=== PATIENT | female | born 1935 | race Caucasian/White ===

== ENCOUNTER 2019-08-24 09:55 | Emergency (ER) | payer MEDICARE, OTHER ==
--- NOTE | 2019-08-24 11:08 | CR ---
[id number] RAD/RAD Ankle Left 3V Min EXAM: RAD Ankle Left 3V Min CLINICAL DATA: PAIN COMPARISON: NO PREVIOUS SIMILAR EXAM IS AVAILABLE. FINDINGS: No fracture or dislocation is seen. There is no radiopaque foreign body in the soft tissues. There is no air in the soft tissues. There is no cortical thickening or periosteal reaction either. IMPRESSION: NEGATIVE PLAIN FILM EXAM. Chet Cruz MD 08/24/19 0423 Thank you for allowing us to participate in the care of your patient.
--- NOTE | 2019-08-24 11:24 | EDM.PDOC ---
ED HPI GENERAL MEDICAL PROBLEM - General Chief Complaint: Lower Extremity Injury/Pain Stated Complaint: S/P FALL, LEFT ANKLE PAIN Time Seen by Provider: 08/24/19 11:04 Source of Information: Reports: Patient, Family (daughter) History Limitations: Reports: No Limitations - History of Present Illness INITIAL COMMENTS - FREE TEXT/NARRATIVE: Patient presents with pain in left anterior foot after falling on the ice 3 days ago. She was out getting her mail and slipped on the icy ruts. She denies any pain in wrists or other extremities except some intermittent pain in right greater trochanter region that comes and goes. The pain is primarily with ankle dorsiflexion and plantar flexion and less with weight bearing. Left Ankle Pain Score (Numeric/FACES): 8 - Related Data Allergies Allergy/AdvReac Type Severity Reaction Status Date / Time morphine Allergy Hallucinati Verified 08/24/19 10:23 ons Home Meds: Home Meds DULoxetine [Cymbalta] 25 mg PO DAILY 08/24/19 [History] Omeprazole PO DAILY 08/24/19 [History] Past Medical History HEENT History: Reports: Impaired Vision - Past Surgical History GI Surgical History: Reports: Cholecystectomy, Other (See Below) Other GI Surgeries/Procedures: abdominal mesh Female Surgical History: Reports: Hysterectomy Musculoskeletal Surgical History: Reports: Other (See Below) Other Musculoskeletal Surgeries/Procedures:: back and hip surgery Social & Family History - Recreational Drug Use Recreational Drug Use: No Review of Systems - Review of Systems Review Of Systems: See Below Constitutional: Denies: Chills, Fever, Weakness Eyes: Denies: Vision Change Ears: Denies: Dizziness Nose: Reports: No Symptoms Mouth/Throat: Reports: No Symptoms Respiratory: Denies: Shortness of Breath, Cough Cardiovascular: Denies: Chest Pain, Lightheadedness, Syncope GI/Abdominal: Denies: Abdominal Pain, Vomiting Genitourinary: Reports: Incontinence (chronic). Denies: Dysuria, Hematuria Musculoskeletal: Reports: Shoulder Pain (chronic), Foot Pain (see CC). Denies: Neck Pain, Arm Pain, Leg Pain Skin: Denies: Cyanosis, Jaundice, Mottled, Pallor, Diaphoresis Neurological: Denies: Confusion, Dizziness, Headache, Seizure, Syncope, Trouble Speaking, Difficulty Walking Psychiatric: Denies: Confusion, Anxiety, Agitation ED EXAM, GENERAL - Physical Exam Exam: See Below Exam Limited By: No Limitations General Appearance: Alert, WD/WN, No Apparent Distress Eye Exam: Bilateral Eye: EOMI, Normal Inspection, PERRL Ears: Normal External Exam, Hearing Grossly Normal Nose: Normal Inspection, No Blood Throat/Mouth: Normal Inspection, Normal Lips, Normal Voice, No Airway Compromise Head: Atraumatic, Normocephalic Neck: Normal Inspection, Full Range of Motion Respiratory/Chest: No Respiratory Distress, Lungs Clear, Normal Breath Sounds, No Accessory Muscle Use Cardiovascular: Regular Rate, Rhythm, No Murmur GI/Abdominal: Soft, Non-Tender, No Organomegaly, No Distention Extremities: Normal Range of Motion, Other (There is mild swelling over that proximal anterior foot and tender to palpation. No evidence of crepitus, dislocation or bony pathology. Malleoli not tender. Distal CMS intact. Other extremities normal.) Neurological: Alert, Oriented, Normal Cognition, No Motor/Sensory Deficits Psychiatric: Normal Affect, Normal Mood Skin Exam: Warm, Dry, Intact, Normal Color, No Rash Course - Vital Signs Last Recorded V/S: Last Vital Signs Temp 97.4 F 08/24/19 10:28 Pulse 84 08/24/19 10:28 Resp 16 08/24/19 10:28 BP 132/61 08/24/19 10:28 Pulse Ox 93 L 08/24/19 10:28 - Re-Assessments/Exams Free Text/Narrative Re-Assessment/Exam: 08/24/19 11:21 Xrays show no fracture or acute pathology. Discussed findings and recommendations with patient and her daughter. Offered a CAM boot and discussed the pros and cons for it. She decided to just use an EVANGELINA as she thinks it will be adequate since nothing is broken. An EVANGELINA is placed and patient is discharged to home in stable condition. Departure - Departure Time of Disposition: 11:19 Disposition: Home, Self-Care 01 Condition: Good Clinical Impression: Left ankle strain Qualifiers: Encounter type: initial encounter Qualified Code(s): S96.912A - Strain of unspecified muscle and tendon at ankle and foot level, left foot, initial encounter - Discharge Information Instructions: Ankle Sprain, [id number] Referrals: Benita Katz MD [Primary Care Provider] - Additional Instructions: 1. Try to avoid activities that cause pain in the ankle and foot. 2. Wrap with EVANGELINA wrap for support and comfort. 3. If you find your ankle is still hurting you can see your PCP for an ankle boot like we discussed. 4. Follow up with your PCP if this isn't improving in a week. Sepsis Event Note - Evaluation Sepsis Screening Result: No Definite Risk - Focused Exam Vital Signs: Vital Signs Temp Pulse Resp BP Pulse Ox 08/24/19 10:28 97.4 F 84 16 132/61 93 L Date Exam was Performed: 08/24/19 Time Exam was Performed: 11:18
== END 2019-08-24 11:30 | disposition home or self-care (01) ==
LOC: KA.ED 09:55
DX: S96.912A Strain of unspecified muscle and tendon at ankle and foot level, left foot, initial encounter (principal); Z88.5 Allergy status to narcotic agent; Z79.899 Other long term (current) drug therapy; W00.0XXA Fall on same level due to ice and snow, initial encounter
CPT/HCPCS: 73610-LT; 99283; 99283-25

== ENCOUNTER 2021-06-07 15:51 | Emergency (ER) | payer MEDICARE, OTHER ==
--- NOTE | 2021-06-07 16:29 | EDM.PDOC ---
ED HPI GENERAL MEDICAL PROBLEM - General Chief Complaint: General Stated Complaint: RIB PAIN Time Seen by Provider: 06/07/21 16:17 Source of Information: Reports: Patient History Limitations: Reports: No Limitations - History of Present Illness INITIAL COMMENTS - FREE TEXT/NARRATIVE: Patient presents with pain in ribs under right breast. At rest there is no pain but quite painful every time she takes a deep breath. It started after a fall 4 weeks ago but hurts today worse than before. No shortness of breath and she is not just taking shallow breaths she says. It hurts some with certain arm and/or torso movements. No exertional pain, tightness, or heaviness. right ribs Pain Score (Numeric/FACES): 8 - Related Data Allergies Allergy/AdvReac Type Severity Reaction Status Date / Time codeine Allergy Other Verified 06/07/21 16:09 morphine Allergy Hallucinati Verified 06/07/21 16:09 ons oxycodone Allergy Hallucinati Verified 06/07/21 16:09 ons Home Meds: Home Meds DULoxetine [Cymbalta] 25 mg PO DAILY 08/24/19 [History] Omeprazole 20 mg PO Q48H 08/24/19 [History] Calcium Carb/Magnesium Ox,Carb [Hay-Mag] 1 each PO DAILY 12/08/20 [History] Cholecalciferol (Vitamin D3) [Vitamin D3] 5,000 unit PO DAILY 12/08/20 [History] Empagliflozin [Jardiance] 25 mg PO DAILY 12/08/20 [History] Krill/Om-3/DHA/EPA/Phospho/Ast [[place]-3 Krill Oil 1,000 mg] 1 each PO DAILY 12/08/20 [History] Mirabegron [Myrbetriq] 25 mg PO DAILY 12/08/20 [History] Multivitamin [Multi-Vitamin Daily] 1 each PO DAILY 12/08/20 [History] Rosuvastatin [Crestor] 10 mg PO DAILY 12/08/20 [History] lisinopriL [Lisinopril] 5 mg PO DAILY 12/08/20 [History] metFORMIN [Glucophage XR] 500 mg PO DAILY 12/08/20 [History] Past Medical History HEENT History: Reports: Impaired Vision - Past Surgical History GI Surgical History: Reports: Cholecystectomy, Other (See Below) Other GI Surgeries/Procedures: abdominal mesh Female Surgical History: Reports: Hysterectomy Musculoskeletal Surgical History: Reports: Other (See Below) Other Musculoskeletal Surgeries/Procedures:: back and hip surgery Social & Family History - Tobacco Use Tobacco Use Status *Q: Never Tobacco User Second Hand Smoke Exposure: No - Caffeine Use Caffeine Use: Reports: Coffee - Recreational Drug Use Recreational Drug Use: No ED ROS GENERAL - Review of Systems Review Of Systems: Comprehensive ROS is negative, except as noted in HPI. ED EXAM, GENERAL - Physical Exam Exam: See Below Exam Limited By: No Limitations General Appearance: Alert, WD/WN, No Apparent Distress Eye Exam: Bilateral Eye: EOMI, Normal Inspection, PERRL Ears: Normal External Exam, Hearing Grossly Normal Nose: Normal Inspection, No Blood Throat/Mouth: Normal Inspection, Normal Lips, Normal Voice, No Airway Compromise Head: Atraumatic, Normocephalic Neck: Normal Inspection, Full Range of Motion Respiratory/Chest: No Respiratory Distress, Lungs Clear, Normal Breath Sounds, No Accessory Muscle Use, Other (Very tender to palpation of anterior/inferior rib just beneath right breast. Also some tenderness to palpation of sternum (likely due to fibromyalgia she says).). No: Crackles, Rales, Rhonchi, Wheezing, Stridor Cardiovascular: Regular Rate, Rhythm, No Murmur GI/Abdominal: Normal Bowel Sounds, Soft, Non-Tender, No Organomegaly, No Distention Back Exam: Normal Inspection, Full Range of Motion. No: CVA Tenderness (L), CVA Tenderness (R) Extremities: Normal Inspection, Normal Range of Motion, Non-Tender Neurological: Alert, Oriented, Normal Cognition, No Motor/Sensory Deficits Psychiatric: Normal Affect, Normal Mood Skin Exam: Warm, Dry, Intact, Normal Color, No Rash Course - Vital Signs Last Recorded V/S: Last Vital Signs Temp 97.8 F 06/07/21 16:00 Pulse 77 06/07/21 17:05 Resp 16 06/07/21 17:05 BP 145/77 H 06/07/21 17:05 Pulse Ox 93 L 06/07/21 17:05 - Re-Assessments/Exams Free Text/Narrative Re-Assessment/Exam: 06/07/21 17:44 CXR shows age indeterminate fractures of right anterior 5th-8th ribs. Small right pleural effusion. Discussed findings and treatment recommendations with patient. She is likely having pleuritic pain now along with the rib pain. She can take NSAIDS she says. Will treat with moderate doses of Ibuprofen and follow up with PCP in one week. Discharged to home in stable condition. Departure - Departure Time of Disposition: 17:40 Disposition: Home, Self-Care 01 Condition: Good Clinical Impression: Pleuritic pain, Small pleural effusion Fracture of three ribs of right side Qualifiers: Encounter type: initial encounter Fracture type: closed Qualified Code(s): S22.41XA - Multiple fractures of ribs, right side, initial encounter for closed fracture - Discharge Information Referrals: Benita Katz MD [Primary Care Provider] - Forms: ED Department Discharge Additional Instructions: Drink 8 cups of water daily. Take Ibuprofen 200-400 mg two or three times a day for inflammation. Follow up with your PCP in one week. If worsening recheck sooner in clinic or ER as needed. Sepsis Event Note (ED) - Evaluation Sepsis Screening Result: No Definite Risk - Focused Exam Vital Signs: Vital Signs Temp Pulse Resp BP Pulse Ox 06/07/21 17:05 77 16 145/77 H 93 L 06/07/21 16:22 81 16 135/70 95 06/07/21 16:00 97.8 F 77 16 150/94 H 96
--- NOTE | 2021-06-07 16:48 | CR ---
[id number] RAD/RAD Chest PA And Lateral EXAM: RAD Chest PA And Lateral INDICATION: RIGHT RIB PAIN, SHORTNESS OF BREATH. COMPARISON: None. DISCUSSION: Multiple lower anterior right rib fractures are age-indeterminate and involve at least the fifth-eighth ribs. Minimal right effusion. No radiographically evident pneumothorax. Hyperinflation suggests underlying chronic obstructive pulmonary disease. Borderline heart size without evidence of edema. Mild bibasilar subsegmental atelectasis. Partially imaged posterior fusion hardware within the lumbar spine. IMPRESSION: 1. Multiple age-indeterminate lower right rib fractures. 2. Minimal right pleural effusion. Jaiden Beth MD 06/07/21 [id number] Thank you for allowing us to participate in the care of your patient.
== END 2021-06-07 16:55 | disposition home or self-care (01) ==
LOC: KA.ED 15:51
DX: S22.41XA Multiple fractures of ribs, right side, initial encounter for closed fracture (principal); J90 Pleural effusion, not elsewhere classified; Z88.5 Allergy status to narcotic agent; W19.XXXA Unspecified fall, initial encounter
CPT/HCPCS: 71046; 99283-25; 99284

== ENCOUNTER 2021-08-01 08:58 | Emergency (ER) | payer MEDICARE, OTHER ==
--- NOTE | 2021-08-01 10:03 | EDM.PDOC ---
ED HPI GENERAL MEDICAL PROBLEM - General Chief Complaint: General Stated Complaint: HIGH BLOOD PRESSURE Time Seen by Provider: 08/01/21 09:43 Source of Information: Reports: Patient History Limitations: Reports: No Limitations - History of Present Illness INITIAL COMMENTS - FREE TEXT/NARRATIVE: 85 YO WF PRESENTS TO ER WITH CONCERNS OF HIGH BLOOD PRESSURE FEEL ANXIOUS TODAY WITH MILD SORE THROAT. PT REPORTS SHE WAS HAVING TROUBLE SLEEPING LAST NIGHT DUE TO A PHONE CONVERSATION WITH HER NIECE THAT WAS UPSETTING. PT WOKE THIS AM AND TOOK HER BLOOD PRESSURE WHICH SHE FELT WAS ELEVATED PROMPTING ER EVALUATION. BP- 130'S/80'S IN ER CURRENTLY. PT DENIES CHEST PAIN, SHORTNESS OF BREATH, DIAPHORESIS, OR N/V. PT DENIES FEVER/CHILLS, OR COUGH BUT STATES SHE HAS HAD MILD SORE THROAT AND SOME NASAL CONGESTION. PT REPORTS SHE IS FEELING BETTER NOW. Onset: Today Location: Reports: Generalized Severity: Mild Improves with: Reports: None Worsens with: Reports: None Associated Symptoms: Reports: No Other Symptoms, Malaise. Denies: Confusion, Chest Pain, Cough, Diaphoresis, Fever/Chills, Headaches, Loss of Appetite, Nausea/Vomiting, Shortness of Breath, Syncope, Weakness - Related Data Allergies Allergy/AdvReac Type Severity Reaction Status Date / Time codeine Allergy Other Verified 08/01/21 09:23 morphine Allergy Hallucinati Verified 08/01/21 09:23 ons oxycodone Allergy Hallucinati Verified 08/01/21 09:23 ons Home Meds: Home Meds DULoxetine [Cymbalta] 25 mg PO DAILY 08/24/19 [History] Omeprazole 20 mg PO Q48H 08/24/19 [History] Calcium Carb/Magnesium Ox,Carb [Hay-Mag] 1 each PO DAILY 12/08/20 [History] Cholecalciferol (Vitamin D3) [Vitamin D3] 5,000 unit PO DAILY 12/08/20 [History] Empagliflozin [Jardiance] 25 mg PO DAILY 12/08/20 [History] Krill/Om-3/DHA/EPA/Phospho/Ast [[place]-3 Krill Oil 1,000 mg] 1 each PO DAILY 12/08/20 [History] Mirabegron [Myrbetriq] 25 mg PO DAILY 12/08/20 [History] Multivitamin [Multi-Vitamin Daily] 1 each PO DAILY 12/08/20 [History] Rosuvastatin [Crestor] 10 mg PO DAILY 12/08/20 [History] lisinopriL [Lisinopril] 5 mg PO DAILY 12/08/20 [History] metFORMIN [Glucophage XR] 500 mg PO BID 12/08/20 [History] Past Medical History HEENT History: Reports: Impaired Vision Cardiovascular History: Reports: High Cholesterol, Hypertension Respiratory History: Reports: SOB Gastrointestinal History: Reports: G[employer] MA[employer]GER History: Reports: Musculoskeletal History: Reports: Osteoarthritis Psychiatric History: Reports: Anxiety, Depression Endocrine/Metabolic History: Reports: Obesity/BMI 30+, Osteoporosis - Past Surgical History GI Surgical History: Reports: Cholecystectomy, Other (See Below) Other GI Surgeries/Procedures: abdominal mesh Female Surgical History: Reports: Hysterectomy Musculoskeletal Surgical History: Reports: Other (See Below) Other Musculoskeletal Surgeries/Procedures:: back and hip surgery Social & Family History - Family History Family Medical History: No Pertinent Family History - Tobacco Use Tobacco Use Status *Q: Never Tobacco User - Caffeine Use Caffeine Use: Reports: Coffee, Soda, Tea - Recreational Drug Use Recreational Drug Use: No ED ROS GENERAL - Review of Systems Review Of Systems: See Below Constitutional: Reports: No Symptoms HEENT: Reports: Rhinitis Respiratory: Reports: No Symptoms Cardiovascular: Reports: No Symptoms Endocrine: Reports: No Symptoms GI/Abdominal: Reports: No Symptoms : Reports: No Symptoms Musculoskeletal: Reports: No Symptoms Skin: Reports: No Symptoms Neurological: Reports: No Symptoms Psychiatric: Reports: Anxiety Hematologic/Lymphatic: Reports: No Symptoms Immunologic: Reports: No Symptoms ED EXAM, GENERAL - Physical Exam Exam: See Below Exam Limited By: No Limitations General Appearance: Alert, WD/WN, No Apparent Distress, Anxious Throat/Mouth: Normal Inspection, Normal Lips, Normal Teeth, Normal Gums, Normal Oropharynx, Normal Voice, No Airway Compromise Head: Atraumatic, Normocephalic Neck: Normal Inspection, Supple, Non-Tender, Full Range of Motion Respiratory/Chest: No Respiratory Distress, Lungs Clear, Normal Breath Sounds, No Accessory Muscle Use, Chest Non-Tender Cardiovascular: Normal Peripheral Pulses, Regular Rate, Rhythm, No Edema, No Gallop, No JVD, No Murmur, No Rub GI/Abdominal: Normal Bowel Sounds, Soft, Non-Tender, No Organomegaly, No Distention, No Abnormal Bruit, No Mass Back Exam: Normal Inspection, Full Range of Motion, NT Extremities: Normal Inspection, Normal Range of Motion, Non-Tender, Normal Capillary Refill, No Pedal Edema Neurological: Alert, Oriented, CN II-XII Intact, Normal Cognition, Normal Gait, No Motor/Sensory Deficits Psychiatric: Normal Affect, Normal Mood Skin Exam: Warm, Dry, Intact, Normal Color, No Rash Lymphatic: No Adenopathy #1 Interpretation EKG Date: 08/01/21 Time: 10:13 Rhythm: NSR Rate (Beats/Min): 77 [place]: LAD-Left [place] Deviation P-Wave: Present QRS: Normal ST-T: Normal QT: Normal Course - Vital Signs Last Recorded V/S: Last Vital Signs Temp 96.1 F L 08/01/21 09:05 Pulse 86 08/01/21 09:05 Resp 18 08/01/21 09:05 BP 148/93 H 08/01/21 09:05 Pulse Ox 95 08/01/21 09:05 Departure - Departure Time of Disposition: 10:47 Disposition: Home, Self-Care 01 Condition: Good Clinical Impression: Anxiety Hypertension Qualifiers: Hypertension type: primary hypertension Qualified Code(s): I10 - Essential (primary) hypertension - Discharge Information Instructions: Managing Anxiety, Adult, Hypertension, Adult, [id number] Referrals: Benita Katz MD [Primary Care Provider] - Additional Instructions: 1. DISCHARGE HOME 2. DECREASE CAFFEINE INTAKE 3. ZYRTEC 10MG DAILY FOR SORE THROAT/POST NASAL DRIP 4. MOTRIN 600MG EVERY 6-8 HOURS FOR SORE THROAT NEEDED 5. FOLLOW UP WITH PCP FOR FURTHER EVALUATION AND TREATMENT 6. RETURN TO ER FOR WORSENING SYMPTOMS Sepsis Event Note (ED) - Evaluation Sepsis Screening Result: No Definite Risk - Focused Exam Vital Signs: Vital Signs Temp Pulse Resp BP Pulse Ox 08/01/21 09:05 96.1 F L 86 18 148/93 H 95 - Assessment/Plan Assessment:: 1. HYPERTENSION 2. ANXIETY 3. RHINITIS Plan: 1. DISCHARGE HOME 2. DECREASE CAFFEINE INTAKE 3. ZYRTEC 10MG DAILY FOR SORE THROAT/POST NASAL DRIP 4. MOTRIN 600MG EVERY 6-8 HOURS FOR SORE THROAT NEEDED 5. FOLLOW UP WITH PCP FOR FURTHER EVALUATION AND TREATMENT 6. RETURN TO ER FOR WORSENING SYMPTOMS
== END 2021-08-01 11:00 | disposition home or self-care (01) ==
LOC: KA.ED 08:58
DX: I10 Essential (primary) hypertension (principal); F41.9 Anxiety disorder, unspecified; E78.00 Pure hypercholesterolemia, unspecified; J31.0 Chronic rhinitis; K21.9 Gastro-esophageal reflux disease without esophagitis; E66.9 Obesity, unspecified; Z68.31 Body mass index [BMI] 31.0-31.9, adult; Z88.5 Allergy status to narcotic agent
CPT/HCPCS: 93005; 93010; 99283-25; 99284

== ENCOUNTER 2021-08-12 09:32 | Emergency (ER) | payer MEDICARE, OTHER ==
--- NOTE | 2021-08-12 09:57 | EDM.PDOC ---
ED HPI GENERAL MEDICAL PROBLEM - General Chief Complaint: Genitourinary Problem Stated Complaint: UTI Time Seen by Provider: 08/12/21 09:57 Source of Information: Reports: Patient - History of Present Illness INITIAL COMMENTS - FREE TEXT/NARRATIVE: Wendi, 85-year-old female, presents with urine frequency with incontinence. She states that for 2 weeks she has not felt well and has had some changes. She uses pads so discharge is difficult to evaluate. She states yesterday she talked with [facility] and took some melatonin and was able to sleep last night. She has fibromyalgia with chronic pain so she states it is very difficult to tell if there is any changes or new pains developing. She states last night she awoke 4 times to go to the bathroom which is normal but stated she left a trail from her bed to the bathroom with incontinence. Denies any fever chills but she has just not felt herself in general. Frequency with no severe burning but does not feel typical when urinating. Onset: Gradual Duration: Day(s): Perineal Area Pain Score (Numeric/FACES): 2 - Related Data Allergies Allergy/AdvReac Type Severity Reaction Status Date / Time codeine Allergy Other Verified 08/12/21 09:34 morphine Allergy Hallucinati Verified 08/12/21 09:34 ons oxycodone Allergy Hallucinati Verified 08/12/21 09:34 ons Home Meds: Home Meds DULoxetine [Cymbalta] 25 mg PO DAILY 08/24/19 [History] Omeprazole 20 mg PO Q48H 08/24/19 [History] Calcium Carb/Magnesium Ox,Carb [Hay-Mag] 1 each PO DAILY 12/08/20 [History] Cholecalciferol (Vitamin D3) [Vitamin D3] 5,000 unit PO DAILY 12/08/20 [History] Empagliflozin [Jardiance] 25 mg PO DAILY 12/08/20 [History] Krill/Om-3/DHA/EPA/Phospho/Ast [[place]-3 Krill Oil 1,000 mg] 1 each PO DAILY 12/08/20 [History] Mirabegron [Myrbetriq] 25 mg PO DAILY 12/08/20 [History] Multivitamin [Multi-Vitamin Daily] 1 each PO DAILY 12/08/20 [History] Rosuvastatin [Crestor] 10 mg PO DAILY 12/08/20 [History] lisinopriL [Lisinopril] 5 mg PO DAILY 12/08/20 [History] metFORMIN [Glucophage XR] 500 mg PO BID 12/08/20 [History] Past Medical History HEENT History: Reports: Impaired Vision Cardiovascular History: Reports: High Cholesterol, Hypertension Respiratory History: Reports: SOB Gastrointestinal History: Reports: GERD [employer] History: Reports: Musculoskeletal History: Reports: Osteoarthritis Psychiatric History: Reports: Anxiety, Depression Endocrine/Metabolic History: Reports: Obesity/BMI 30+, Osteoporosis - Past Surgical History GI Surgical History: Reports: Cholecystectomy, Other (See Below) Other GI Surgeries/Procedures: abdominal mesh Female Surgical History: Reports: Hysterectomy Musculoskeletal Surgical History: Reports: Other (See Below) Other Musculoskeletal Surgeries/Procedures:: back and hip surgery Social & Family History - Family History Family Medical History: No Pertinent Family History - Caffeine Use Caffeine Use: Reports: Coffee, Soda, Tea ED ROS GENERAL - Review of Systems Review Of Systems: Comprehensive ROS is negative, except as noted in HPI. ED EXAM, GENERAL - Physical Exam Exam: See Below Free Text/Narrative:: Alert, oriented, in no apparent illness presentation. There is no cyanosis nor pallor noted. She is able speak in full sentences with no difficulty. Thorax is clear throughout I do not appreciate any wheezes nor crackles. Cardiac is regular I do not appreciate any murmur. There is no flank pain but she states chronic pain in the back area. No pain or pressure over the urinary bladder but speaks of a fullness. She is able to ambulate with no difficulty has had no loss of balance or function. Course - Vital Signs Last Recorded V/S: Last Vital Signs Temp 96.9 F 08/12/21 09:34 Pulse 89 08/12/21 09:34 Resp 18 08/12/21 09:34 BP 169/100 H 08/12/21 09:34 Pulse Ox 97 08/12/21 09:34 - Orders/Labs/Meds Labs: Laboratory Tests 08/12/21 Range/Units 09:45 Specimen Type Urincc Urine Color Yellow (YELLOW) Urine Appearance Clear (CLEAR) Urine pH 5.5 (5.0-9.0) Ur Specific [place] 1.020 (1.005-1.030) Urine Protein Negative (NEGATIVE) mg/dL Urine Glucose (UA) 500 H (NEGATIVE) mg/dL Urine Ketones Negative (NEGATIVE) mg/dL Urine Occult Blood Negative (NEGATIVE) Urine Nitrite Negative (NEGATIVE) Urine Bilirubin Negative (NEGATIVE) Urine Urobilinogen 0.2 (0.2-1.0) E.U./dL Ur Leukocyte Esterase Negative (NEGATIVE) Departure - Departure Time of Disposition: 11:13 Disposition: Home, Self-Care 01 Condition: Fair Clinical Impression: Urine frequency, Incontinence of urine, Glucose found in urine on examination, Diabetes mellitus, History of medication noncompliance - Discharge Information *PRESCRIPTION DRUG MONITORING PROGRAM REVIEWED*: Not Applicable *COPY OF PRESCRIPTION DRUG MONITORING REPORT IN PATIENT DEMETRIO: Not Applicable Instructions: Type 2 Diabetes Mellitus, Diagnosis, Adult, Urinary Incontinence Referrals: Benita Katz MD [Primary Care Provider] - Forms: ED Department Discharge Additional Instructions: We found that your medications and your pillbox were not as directed and have adjusted this. Your urine issues are related to having a high level of sugar in your urine due to poorly controlled diabetes due to your medication compliance. We called [facility] to get you a cream to use topically to help protect your skin in your perineum region. You need to take only 1 lisinopril pill per day. You need to take Metformin 2 pills twice daily. You need to take your Jardiance daily These 3 mentioned medications are very important for the control of your blood pressure and your diabetes. It will take at least 1 month of your Metformin and Jardiance to show a change in your A1c which is the average of your blood sugars. When you were rechecked at the clinic on 15 July it had gone up considerably, showing that you had not been fully controlled in your blood sugars, despite not eating sweets. You need to be rechecked at the clinic if this does not continue to improve with the adjustments in the medication. You should be reseen sometime the end of August for reassessment of your blood work to make sure the medications are working appropriately. Sepsis Event Note (ED) - Evaluation Sepsis Screening Result: No Definite Risk - Focused Exam Vital Signs: Vital Signs Temp Pulse Resp BP Pulse Ox 08/12/21 09:34 96.9 F 89 18 169/100 H 97 - Problem List & Annotations (1) Urine frequency SNOMED Code(s): 579147928 Code(s): R35.0 - FREQUENCY OF MICTURITION Status: Acute Priority: High Current Visit: Yes (2) Incontinence of urine SNOMED Code(s): 485023745 Code(s): R32 - UNSPECIFIED URINARY INCONTINENCE Status: Acute Priority: Medium Current Visit: Yes Qualifiers: Urinary Incontinence type: unspecified incontinence Qualified Code(s): R32 - Unspecified urinary incontinence (3) Glucose found in urine on examination SNOMED Code(s): 80612641 Code(s): R81 - GLYCOSURIA Status: Acute Priority: High Current Visit: Yes (4) History of medication noncompliance SNOMED Code(s): 787414324 Code(s): Z91.14 - PATIENT'S OTHER NONCOMPLIANCE WITH MEDICATION REGIMEN Status: Chronic Priority: High Current Visit: Yes (5) Diabetes mellitus SNOMED Code(s): 72922444 Code(s): E11.9 - TYPE 2 DIABETES MELLITUS WITHOUT COMPLICATIONS Status: Acute Current Visit: Yes Qualifiers: Diabetes mellitus type: type 2 Diabetes mellitus fpc insulin use: without salvage determiner use Diabetes mellitus complication status: with other specified complication Qualified Code(s): E11.69 - Type 2 diabetes mellitus with other specified complication - Problem List Review Problem List Initiated/Reviewed/Updated: Yes - Assessment/Plan Plan: We found that your medications and your pillbox were not as directed and have adjusted this. Your urine issues are related to having a high level of sugar in your urine due to poorly controlled diabetes due to your medication compliance. We called [facility] to get you a cream to use topically to help protect your skin in your perineum region. You need to take only 1 lisinopril pill per day. You need to take Metformin 2 pills twice daily. You need to take your Jardiance daily These 3 mentioned medications are very important for the control of your blood pressure and your diabetes. It will take at least 1 month of your Metformin and Jardiance to show a change in your A1c which is the average of your blood sugars. When you were rechecked at the clinic on 15 July it had gone up considerably, showing that you had not been fully controlled in your blood sugars, despite not eating sweets. You need to be rechecked at the clinic if this does not continue to improve with the adjustments in the medication. You should be reseen sometime the end of August for reassessment of your blood work to make sure the medications are working appropriately.
== END 2021-08-12 10:35 | disposition home or self-care (01) ==
LOC: KA.ED 09:32
DX: R35.0 Frequency of micturition (principal); R32 Unspecified urinary incontinence; R81 Glycosuria; E11.9 Type 2 diabetes mellitus without complications; E78.00 Pure hypercholesterolemia, unspecified; I10 Essential (primary) hypertension; K21.9 Gastro-esophageal reflux disease without esophagitis; M19.90 Unspecified osteoarthritis, unspecified site; E66.9 Obesity, unspecified; Z68.30 Body mass index [BMI] 30.0-30.9, adult; Z88.5 Allergy status to narcotic agent; Z79.899 Other long term (current) drug therapy; Z91.14 Patient's other noncompliance with medication regimen; Z79.84 Long term (current) use of oral hypoglycemic drugs
CPT/HCPCS: 81003; 99283; 99284

== ENCOUNTER 2022-08-16 07:23 | Day surgery (SDC) | payer MEDICARE, OTHER ==
[2022-08-16] MEDS ORDERED: Propofol 200 MG/20 ML SDV IV ONE (07:24)
[2022-08-16] MEDS: Sodium Chloride 0.9% 1,000 ML IV ONE (08:00)
[2022-08-16 08:28] LABS: ANION GAP 9.9 mmol/L (5-15)
[2022-08-16] MEDS ORDERED: Propofol 200 MG/20 ML SDV ONE ×2 (08:48→09:31)
[2022-08-16] MEDS ORDERED: fentaNYL 100 MCG/2 ML SDV ONE (08:48)
[2022-08-16] MEDS ORDERED: Lidocaine 0.5% 50 ML SDV ONE (08:49)
[2022-08-16] MEDS ORDERED: Bupivacaine 0.5% 30 ML SDV ONE ×2 (08:52→09:34)
[2022-08-16] MEDS ORDERED: Bacitracin/Neomycin/Polymyxin B Oint 0.9 GM U/D Packet ONE (08:52)
[2022-08-16] MEDS: Bupivacaine 0.5% 30 ML SDV INFILT ONE ×2 (09:30)
[2022-08-16] MEDS: Bacitracin/Neomycin/Polymyxin B Oint 0.9 GM U/D Packet TOP ONE (09:30)
== END 2022-08-16 11:06 | disposition home or self-care (01) ==
LOC: KA.SDS 07:23
PROVIDERS: ATTEND Surgery
DX: G56.02 Carpal tunnel syndrome, left upper limb (principal); M72.0 Palmar fascial fibromatosis [Dupuytren]; N39.0 Urinary tract infection, site not specified; I10 Essential (primary) hypertension; E11.9 Type 2 diabetes mellitus without complications; Z88.5 Allergy status to narcotic agent; Z88.6 Allergy status to analgesic agent; Z79.899 Other long term (current) drug therapy; Z79.84 Long term (current) use of oral hypoglycemic drugs; Z98.890 Other specified postprocedural states; Z96.649 Presence of unspecified artificial hip joint
CPT/HCPCS: 01820; 36415; 80053; 82947; 85025; J2704; J3490; J7030

== ENCOUNTER 2022-12-23 22:05 | Emergency (ER) | payer MEDICARE, OTHER ==
[2022-12-23 23:05] LABS: BASOPHILS ABSOLUTE AUTO 0.03 10^3/uL (0.00-0.10); BASOPHILS PERCENT AUTO 0.4 % (0.0-1.0); EOSINOPHILS ABSOLUTE AUTO 0.16 10^3/uL (0.10-0.30); EOSINOPHILS PERCENT AUTO 2.3 % (1.0-3.0); HEMATOCRIT 39.4 % (37.0-47.0); HEMOGLOBIN 12.8 g/dL (12.0-16.0); IMMATURE GRAN ABSOLUTE AUTO 0.02 10^3/uL (0.00-0.50); IMMATURE GRAN PERCENT AUTO 0.3 % (0.0-5.0); LYMPHOCYTES ABSOLUTE AUTO 2.03 10^3/uL (1.00-4.00); LYMPHOCYTES PERCENT AUTO 28.6 % (20.0-40.0); MEAN CORPUSCULAR HEMOGLOBIN 30.5 pg (27.0-31.0); MEAN CORPUSCULAR HGB CONC 32.5 g/dL (32.0-36.0); MEAN CORPUSCULAR VOLUME 93.8 fL (82.0-92.0); MEAN PLATELET VOLUME 8.8 fL (7.4-10.4); MONOCYTES ABSOLUTE AUTO 0.69 10^3/uL (0.10-0.80); MONOCYTES PERCENT AUTO 9.7 % (2.0-8.0); NEUTROPHILS ABSOLUTE AUTO 4.18 10^3/uL (2.50-7.00); NEUTROPHILS PERCENT AUTO 58.7 % (50.0-70.0); PLATELET COUNT,PLT 242 10^3/uL (150-400); RED CELL DISTRIBUTION WIDTH 12.8 % (11.5-14.5); WHITE BLOOD CELL COUNT,WBC 7.11 10^3/uL (5.00-10.00)
[2022-12-23 23:09] LABS: APPEARANCE,URINE SLIGHTLY CLOUDY (CLEAR); BILIRUBIN,URINE NEGATIVE (NEGATIVE); COLOR,URINE DARK YELLOW (YELLOW); GLUCOSE,URINE NEGATIVE (NEGATIVE); KETONES,URINE TRACE mg/dL (NEGATIVE); LEUKOCYTE ESTERASE,URINE SMALL (NEGATIVE); NITRITE,URINE NEGATIVE (NEGATIVE); OCCULT BLOOD,URINE NEGATIVE (NEGATIVE); PROTEIN,URINE TRACE mg/dL (NEGATIVE); UROBILINOGEN,URINE 0.2 E.U./dL (0.2-1.0)
[2022-12-23 23:19] LABS: EPITHELIAL CELLS,URINE MODERATE /LPF; RBC,URINE 0-5 /HPF (0-5)
[2022-12-23 23:20] LABS: BLOOD UREA NITROGEN,BUN 19 mg/dL (7-18); CALCIUM 8.8 mg/dL (8.7-10.3); CARBON DIOXIDE,CO2 27.2 mmol/L (21.0-32.0); CHLORIDE,CL 102 mmol/L (98-107); CREATININE 0.82 mg/dL (0.51-1.17); ESTIMATED GFR 68 mL/min (>=60); GLUCOSE RANDOM 134 mg/dL (70-140); POTASSIUM,K 4.2 mmol/L (3.5-5.1); SODIUM,NA 137 mmol/L (136-145)
[2022-12-23 23:20] LABS: BACTERIA,URINE FEW /HPF (NONE TO FEW); WBC,URINE 30-40 /HPF (0-5)
== END 2022-12-24 00:19 | disposition home or self-care (01) ==
LOC: SUPCPDRO 22:05 → KA.ED 22:05
DX: R10.31 Right lower quadrant pain (principal); E86.0 Dehydration; M41.86 Other forms of scoliosis, lumbar region; I10 Essential (primary) hypertension; E11.9 Type 2 diabetes mellitus without complications; E66.9 Obesity, unspecified; Z68.30 Body mass index [BMI] 30.0-30.9, adult; Z88.5 Allergy status to narcotic agent; Z88.6 Allergy status to analgesic agent; Z79.899 Other long term (current) drug therapy; Z79.84 Long term (current) use of oral hypoglycemic drugs; Z90.49 Acquired absence of other specified parts of digestive tract; Z90.710 Acquired absence of both cervix and uterus
CPT/HCPCS: 36415; 72100; 74018; 80048; 81001; 85025; 87086; 87088; 99284